=== PATIENT | male | born 1965 | race Caucasian/White ===

== ENCOUNTER 2021-11-19 14:59 | Emergency (ER) | payer OTHER ==
[~2021-11-19] VITALS: Ht 182.9 cm; Wt 93.0 kg
[2021-11-19 17:06] LABS: INFLUENZA A ANTIGEN Negative (Negative); INFLUENZA B ANTIGEN Negative (Negative)
[2021-11-19 17:47] VITALS: BP 135/54
== END 2021-11-19 17:55 | disposition home or self-care (01) ==
LOC: M.ERS 14:59
PROVIDERS: Nurse Practitioner Family
DX: U07.1 COVID-19 (principal); R42 Dizziness and giddiness